=== PATIENT | female | born 1985 | race Caucasian/White ===

== ENCOUNTER 2019-10-15 06:16 | Day surgery (SDC) | payer OTHER ==
[~2019-10-15] VITALS: Ht 154.9 cm; Wt 67.1 kg
[2019-10-15 06:55] VITALS: BP 156/83
[2019-10-15 11:31] VITALS: BP 147/87
== END 2019-10-15 11:10 | disposition home or self-care (01) ==
LOC: DS 06:16 → OR 07:30 → DS 11:10
PROVIDERS: ATTEND Obstetrics & Gynecology
DX: Z30.2 Encounter for sterilization (principal)
CPT/HCPCS: J0690; J2175; J2250; J2270; J2405; J3010; J3490; U0003-CS